=== PATIENT | female | born 1980 ===

== ENCOUNTER 2021-01-26 08:15 | Inpatient (IN) | payer OTHER ==
[~2021-01-26] VITALS: Ht 157.5 cm; Wt 79.4 kg
[2021-01-30] MEDS ORDERED: IRON325 MG PO (11:40)
[2021-01-30] MEDS ORDERED: PRENATAL PLUS1 EAC1 PO (11:40)
== END 2021-02-02 10:37 | disposition home or self-care (01) | DRG 788 ==
LOC: OB/GYN 01-30 08:15 → O/R 01-30 10:40 → OB/GYN 01-30 19:36
PROVIDERS: ADMIT Obstetrics & Gynecology; ATTEND Obstetrics & Gynecology
PROC: 4A1HXFZ Monitoring of Products of Conception, Cardiac Rhythm, External Approach (ICD-10-PCS; 2021-01-30)
PROC: 10D00Z1 Extraction of Products of Conception, Low, Open Approach (ICD-10-PCS; principal; 2021-01-30 12:00)
DX: O65.5 Obstructed labor due to abnormality of maternal pelvic organs (principal); O34.211 Maternal care for low transverse scar from previous cesarean delivery; O99.892 Other specified diseases and conditions complicating childbirth; D18.09 Hemangioma of other sites; Z3A.39 39 weeks gestation of pregnancy; Z37.0 Single live birth